=== PATIENT | female | born 1965 | race Caucasian/White ===

== ENCOUNTER 2016-05-18 12:05 | Emergency (ER) | payer BC ==
[~2016-05-18] VITALS: Ht 157.5 cm; Wt 100.0 kg
[~2016-05-18 12:05] MED LIST: DEPO150I IM
[2016-05-18 12:08] VITALS: BP 133/76; PULSE 94; RESP 16; TEMP 98; O2SAT 94
[2016-05-18] MEDS ORDERED: IBUP800T23 PO (12:28)
[2016-05-18] MEDS ORDERED: MOME17I EACH NARE (12:28)
--- NOTE | 2016-05-18 12:28 | PD ---
HPI Chief Complaint: ENT Complaint Time Seen by Provider: 12:26 Travel History International Travel<30 days: No Contact w/Intl Traveler<30days: No Traveled to known affect area: No History of Present Illness HPI 50-year-old female presents to the emergency Department with complaint of left ear pain 3-4 days. She has also had nasal congestion, cough, throat irritation. Denies fever, chills, nausea, vomiting. Denies chest pain, shortness of breath. Has taken Tylenol and Aleve with good relief of pain. Denies ear drainage. Denies change in hearing. No known aggravating or relieving factors. Denies allergies. No other modifying factors or associated signs and symptoms. PFSH Past Medical History Blood Disorders: No Depression: Yes (NO MEDS NOW) Heart Rhythm Problems: Yes (MITRAL VALVE PROLAPSE) Cancer: No Cardiovascular Problems: Yes (MITRAL VALVE PROLAPSE) Diminished Hearing: No Endocrine: No Genitourinary: Yes Musculoskeletal: No Neurologic: No Psychiatric: Yes Reproductive: No Respiratory: No Thyroid Disease: No : 4 Para: 2 Miscarriage: 1 Past Surgical History Abdominal Surgery: No AICD: No Arteriovenous Shunt: No Cardiac Surgery: No Section: Yes (X2) Cholecystectomy: Yes Ear Surgery: No Endocrine Surgery: No Eye Surgery: No Genitourinary Surgery: No Gynecologic Surgery: No Insulin Pump: No Joint Replacement: No Oral Surgery: No Pacemaker: No Thoracic Surgery: No Social History Alcohol Use: No Tobacco Use: No Substance Use: No Allergies-Medications (Allergen,Severity, Reaction): Coded Allergies: No Known Allergies (Verified , 03/11/12) Reported Meds & Prescriptions Reported Meds & Active Scripts Active Ibuprofen 800 Mg Tab 800 Mg PO Q6HR PRN Nasonex Nasal [place] (Mometasone Furoate) 50 Mcg/Act Naspr 2 [place] EACH NARE DAILY PRN Reported Depo-Provera Contraceptive (Medroxyprogesterone Acetate) 150 Mg/Ml Susp 150 Mg IM [id number] Review of Systems Except as stated in HPI: all other systems reviewed are Neg Physical Exam Narrative GENERAL: Well-nourished, well-developed female patient, in no acute distress; afebrile, nontoxic-appearing SKIN: Warm and dry. No rash. HEAD: Atraumatic. Normocephalic. EYES: Pupils equal and round at 3 mm with brisk reaction. No scleral icterus. No injection or drainage. PERRLA. ENT: Mucosa pink and moist. No erythema or exudates. No uvular edema. No uvular , palatal, or tonsillar deviation. Airway patent. EARS: Bilateral pinnae and external canals appear within normal limits. Bilateral tympanic membranes without erythema, dullness or perforation; bulging bilaterally. No indication noted to the left ear that is causing the patient's ear pain except for the tympanic membrane is bulging; no signs of otitis media or externa; no foreign body; no perforation. NECK: Trachea midline. No lymphadenopathy. CARDIOVASCULAR: Regular rate and rhythm. No murmur appreciated. RESPIRATORY: No accessory muscle use. Clear to auscultation. Breath sounds equal bilaterally. GASTROINTESTINAL: Abdomen soft, non-tender, nondistended. Hepatic and splenic margins not palpable. Bowel sounds are active 4 quadrants. MUSCULOSKELETAL: No obvious deformities. No clubbing. No cyanosis. No edema. NEUROLOGICAL: Awake and alert. Oriented 3. No obvious cranial nerve deficits. Motor grossly within normal limits. Normal speech. Moves all extremities. 5/5 strength to all extremities. PSYCHIATRIC: Appropriate mood and affect; insight and judgment normal. Data Data Last Documented VS Vital Signs Date Time Temp Pulse Resp B/P Pulse Ox O2 Delivery O2 Flow Rate FiO2 05/18/16 12:08 98.0 94 16 133/76 94 Room Air MDM Medical Decision Making Medical Screen Exam Complete: Yes Emergency Medical Condition: Yes Medical Record Reviewed: Yes Differential Diagnosis Viral illness, otitis media, otitis externa Narrative Course 50-year-old female physical exam consistent with viral illness and no indication for complaint of left ear pain. The left ear is without signs of otitis media, external, perforation, cerumen impaction. The tympanic membrane is bulging, which may be causing her ear pain. Patient is afebrile. She denies fever, chills, nausea, vomiting. Ibuprofen and Nasonex prescribed for home. Patient is medically cleared and stable for discharge. Discussed reasons to return to the emergency department. Instructed patient to follow up with primary care provider. Patient agrees with treatment plan. The patients vital signs are stable and the patient is stable for outpatient follow-up and treatment. Patient discharged home, stable and in no acute distress. Diagnosis Primary Impression: Viral illness Additional Impression: Left ear pain Referrals: Primary Care Physician Patient Instructions: Cold Symptoms (ED), General Instructions, Safe Use of Cough and Cold Medicines (ED) Departure Forms: Tests/Procedures, Work Release Enter return to work date: May 19, 2016 Additional Instructions: Ibuprofen or Tylenol as directed and as needed to reduce fever/pain Get plenty of sleep/rest Drink plenty of fluids to prevent dehydration [place] diet to encourage nutrition such as crackers, fruit, applesauce, toast, soup etc. Use an air humidifier/turn off ceiling fans Follow-up with your primary care provider Return immediately to the emergency department with worsening of symptoms Med/Other Pt SpecificInfo: Prescription(s) given Scripts Ibuprofen 800 Mg Ors737 Mg PO Q6HR PRN (PAIN) #30 TAB Ref 0 Prov:Alise Acevedo 05/18/16 Mometasone Nasal [place] (Nasonex Nasal [place])50 Mcg/Act Naspr2 [place] EACH NARE DAILY PRN (NASAL CONGESTION) #1 BOTTLE Ref 0 Prov:Alise Acevedo 05/18/16 Disposition: 01 DISCHARGE HOME Condition: Stable Alise Acevedo May 18, 2016 12:28
== END 2016-05-18 12:50 | disposition home or self-care (01) ==
LOC: NEPB 12:05
DX: B34.9 Viral infection, unspecified (principal); H92.02 Otalgia, left ear
CPT/HCPCS: 99283